=== PATIENT | male | born 1990 | race Caucasian/White ===

== ENCOUNTER 2018-05-14 12:07 | Emergency (ER) | payer BC ==
[2018-05-14 12:14] VITALS: BP 136/58
[2018-05-14] MEDS ORDERED: ROCEPHIN IM ONE (13:33)
[2018-05-14] MEDS ORDERED: XYLOCAINE 1% MPF 5 mL INFILTRATI ONE (13:33)
[2018-05-14] MEDS ORDERED: ZITHROMAX PO ONE (13:33)
--- NOTE | 2018-05-14 13:37 | Emergency Department Report ---
HPI - General Chief Complaint: Urogenital-Male Time Seen by Provider: 05/14/18 13:26 - HPI HPI: 27-year-old male presents to the emergency department with a complaint of exposure to someone with STDs recently as well as a one-day history of some bilateral testicular pain. He denies any scrotal or testicular swelling, any penile discharge or lesions. He says that he recently had sexual relations with a female who called him last night and told him that she was positive for gonorrhea and chlamydia. He himself denies any previous history of this or any other past medical history. He has not taken anything for her symptoms. Presentation. No primary care physician. ED Past Medical Hx - Past Medical History Previous Medical History?: No - Surgical History Past Surgical History?: No - Social History Smoking Status: Light Tobacco Smoker Substance Use Type: Alcohol ED Review of Systems ROS: Stated complaint: STD CHECK; PAIN IN PRIVATE AREA Other details as noted in HPI Comment: All other systems reviewed and negative Constitutional: denies: chills, fever Eyes: denies: eye pain, eye discharge, vision change ENT: denies: ear pain, throat pain Respiratory: denies: cough, shortness of breath, wheezing Cardiovascular: denies: chest pain, palpitations Gastrointestinal: denies: abdominal pain, nausea, diarrhea Genitourinary: testicular pain. denies: urgency, dysuria Musculoskeletal: denies: back pain, joint swelling, arthralgia Skin: denies: rash, lesions Neurological: denies: headache, weakness, paresthesias Physical Exam - Physical Exam Vital Signs: Vital Signs 05/14/18 12:10 Temperature 98.5 F Pulse Rate 58 L Respiratory 18 Rate Blood Pressure 136/58 O2 Sat by Pulse 99 Oximetry Physical Exam: GENERAL: The patient is well-developed well-nourished. HENT: Normocephalic. Atraumatic. Patient has moist mucous membranes. EYES: Extraocular motions are intact. NECK: Supple. Trachea is midline. CHEST/LUNGS: Clear to auscultation. There is no respiratory distress noted. HEART/CARDIOVASCULAR: Regular. There is no tachycardia. There is no murmur. ABDOMEN: Abdomen is soft, nontender. Patient has normal bowel sounds. There is no abdominal distention. SKIN: Skin is warm and dry. NEURO: The patient is awake, alert, and oriented. The patient is cooperative. The patient has no focal neurologic deficits. The patient has normal speech and gait. MUSCULOSKELETAL: There is no tenderness or deformity. There is no limitation range of motion. There is no evidence of acute injury. : There are no obvious deformities to the penis or testicles/scrotum including no skin color change or lesions. ED Course Vital Signs 05/14/18 12:10 Temperature 98.5 F Pulse Rate 58 L Respiratory 18 Rate Blood Pressure 136/58 O2 Sat by Pulse 99 Oximetry ED Medical Decision Making - Radiology Data Radiology results: report reviewed EXAM: US TESTICULAR DOPPLER COMP HISTORY: testicular pain TECHNIQUE: Longitudinal and transverse grayscale, color, and Doppler sonographic imaging of the testicles was performed Comparison: None FINDINGS: The right testicle measures 4.8 x 2.4 x 3.4 centimeters. Left testicle measures 4.2 x 2.4 x 3.1 centimeters. Both testicles are homogeneous with normal echotexture and no intratesticular mass lesion. Normal color flow. No significant hydrocele. The right epididymal head measures 1.2 x 1.0 centimeters. The left epididymal head measures 1.0 by 1.0 centimeters. IMPRESSION: Normal testicular ultrasound. No evidence for torsion, mass, or inflammation. Transcribed By: CECY Dictated By: AUGIE TAPIA Electronically Authenticated By: AUGIE TAPIA Signed Date/Time: 05/14/18 1532 - Medical Decision Making The patient came with the complaint of exposure to someone who was recently diagnosed with STD, gonorrhea and/or Chlamydia. He also complained of some testicular pain. On examination he does not appear to have any significant discomfort or anything obvious for torsion. However we did do a testicular Doppler ultrasound that did not show any torsion, mass or any other acute process. The patient was empirically treated for his STD exposure with Rocephin and azithromycin. He will wait 1 week until engaging any further sexual activity. He will return to the ER with any worsening of symptoms or any acute distress. - Differential Diagnosis STD, torsion, epididymitis Critical Care Time: No Critical care attestation.: If time is entered above; I have spent that time in minutes in the direct care of this critically ill patient, excluding procedure time. ED Disposition Clinical Impression: Exposure to STD, Testicular pain Disposition: DC-01 TO HOME OR SELFCARE Is pt being admited?: No Condition: Stable Instructions: Sexually Transmitted Diseases (ED), Testicle Pain (ED) Additional Instructions: Please follow up with a primary care physician in the next few days. Return to the emergency Department with any worsening of your symptoms are any acute distress. Please do not engage in any type of sexual activity for at least 1 week since receiving your treatment. Referrals: PRIMARY CARE, [Primary Care Provider] - 3-5 Days Time of Disposition: 15:45
--- NOTE | 2018-05-14 15:39 | Ultrasound Report ---
FINAL REPORT EXAM: US TESTICULAR DOPPLER COMP HISTORY: testicular pain TECHNIQUE: Longitudinal and transverse grayscale, color, and Doppler sonographic imaging of the testicles was performed Comparison: None FINDINGS: The right testicle measures 4.8 x 2.4 x 3.4 centimeters. Left testicle measures 4.2 x 2.4 x 3.1 centimeters. Both testicles are homogeneous with normal echotexture and no intratesticular mass lesion. Normal color flow. No significant hydrocele. The right epididymal head measures 1.2 x 1.0 centimeters. The left epididymal head measures 1.0 by 1.0 centimeters. IMPRESSION: Normal testicular ultrasound. No evidence for torsion, mass, or inflammation.
== END 2018-05-14 16:04 | disposition home or self-care (01) ==
LOC: ED 12:07
DX: N50.812 Left testicular pain (principal); N50.811 Right testicular pain; Z20.2 Contact with and (suspected) exposure to infections with a predominantly sexual mode of transmission; F17.200 Nicotine dependence, unspecified, uncomplicated
CPT/HCPCS: 93975; 96372; 99283; J0696